=== PATIENT | female | born 1940 | race Caucasian/White ===

== ENCOUNTER → 2017-11-09 | Outpatient (CLI) | payer MEDICARE, BC ==
[~2017-11-09] MED LIST: ASPI-715 PO; ASPI81TA94 PO; CALC-852 PO; CALC500T42 PO; CALCIUM; CHOL200022 PO; CIPR-214 PO; FLUT12HF2 IH; HYDR-3250 PO; LOR7.5/325 PO; MULT-885 PO; MULT1CAP59 PO; No Rtn Meds
== END ==
LOC: LAB 14:02
PROVIDERS: ATTEND Internal Medicine
DX: E04.1 Nontoxic single thyroid nodule (principal); E04.9 Nontoxic goiter, unspecified
CPT/HCPCS: 36415; 84439; 84443; 84481

== ENCOUNTER → 2017-11-16 | Outpatient (CLI) | payer MEDICARE, BC ==
--- NOTE | 2017-11-16 16:26 | RADIOLOGY IMAGING REPORT ---
FACILITY: [facility] PATIENT NAME: Autumn Arellano : 1940 MR: [id number] V: [id number] EXAM DATE: ORDERING PHYSICIAN: STANFORD JOSEPH TECHNOLOGIST: Location: [facility] [place] Patient: Autumn Arellano : 1940 Visit/Account:[id number] Date of Sevice: 11/16/2017 THYROID HISTORY: Thyroid nodulesnodule thyroid COMPARISON: September 19, 2014 FINDINGS: SIZE: Right lobe: 5.8 x 1.2 x 1.8 cm Left lobe: 5.6 x 1.4 x 2 cm Isthmus: 3 mm PARENCHYMA: Heterogeneous NODULES: Right lobe: * There is an isoechoic nodule posterior aspect of the mid right lobe measuring approximately 1.6 cm in maximum dimension when measured in the same tissue planes appears relatively unchanged when brett red to the prior study. There is an additional slightly hypoechoic well-circumscribed nodule in the superior pole the right lobe measuring 1.1 cm in diameter this appears unchanged. Left lobe: * In the inferior left lobe there is an isoechoic nodule measuring 1.9 cm in diameter slightly incre ased from 1.7 cm previously. In the mid left lobe there is a 2.1 cm isoechoic nodule appears increas ed in size when compared to the prior study. In the superior left lobe is a 1.1 cm hypoechoic well-c ircumscribed nodule not measured on the prior study. Isthmus: * Is a 2.6 cm solid hypoechoic well-circumscribed nodule in the left-sided isthmus appears slightly more prominent when compared the prior study VASCULARITY: Within normal limits. ADDITIONAL FINDINGS: None. IMPRESSION: There is a 1.6 cm isoechoic nodule posterior aspect mid right lobe for which ultrasound-guided fine-n eedle aspiration is recommended In the inferior left lobe there is a isoechoic nodule measuring 1.9 cm in diameter slightly increased in size when compared the prior study for which ultrasound-guided fine-needle aspiration is recommen ded In the mid left lobe there is a 2.1 cm isoechoic nodule appears increased in size for which fine-need le aspiration is recommended Left-sided isthmus is a 2.6 cm hypoechoic nodule for which ultrasound-guided fine-needle aspiration i s recommended REFERENCE: 2015 [place] [employer] Management Guidelines for Adult Patients with Thyroid Nodules and D ifferentiated Thyroid Cancer: The [place] [employer] Guidelines Task Force on Thyroid Nodul es and Differentiated Thyroid Cancer. SONOGRAPHIC PATTERNS: * Benign: Purely cystic nodules (no solid component); estimated risk of malignancy <1 percent; no bi opsy recommended. * Very Low Suspicion: Spongiform or partially cystic nodules without any of the sonographic features described in low, intermediate, or high suspicion patterns; estimated risk of malignancy <3 percent; consider FNA at > 2 cm (Observation without FNA is also a reasonable option). * Low Suspicion: Isoechoic or hyperechoic solid nodule, or partially cystic nodule with eccentric so lid areas, without microcalcification, irregular margin or ETE (extra-thyroidal extension), or taller than wide shape; estimated risk of malignancy 5-10 percent; recommend FNA at >1.5 cm. * Intermediate Suspicion: Hypoechoic solid nodule with smooth margins without microcalcifications, E TE (extra-thyroidal extension), or taller than wide shape; estimated risk of malignancy 10-20 percent ; recommend FNA at > 1 cm. * High Suspicion: Solid hypoechoic nodule or solid hypoechoic component of a partially cystic nodule with one or more of the following features: irregular margins (infiltrative, microlobulated), microc alcifications, taller than wide shape, rim calcifications with small extrusive soft tissue component, evidence of ETE (extra-thyroidal extension); estimated risk of malignancy >70-90 percent; recommend FNA at > 1 cm. NOTES: * Although a sonographically suspicious subcentimeter thyroid nodule without evidence of extrathyroi jaja extension or sonographically suspicious lymph nodes may be observed with close sonographic follow -up rather than pursuing immediate FNA, patient age and prefere ce may modify decision-making.A > 50% interval increase in nodule volume and/or development of new suspicious sonographic features are fel t to be a valid reasons for potential re-aspiration of a nodule previously shown to have benign FNA c ytology. Report Dictated By: Princess Valdez MD at 11/16/2017 4:13 PM Report E-Signed By: Princess Valdez MD at 11/16/2017 4:21 PM WSN:[email or web address]
== END ==
LOC: US 04:23
PROVIDERS: ATTEND Internal Medicine
DX: E04.9 Nontoxic goiter, unspecified (principal); E04.1 Nontoxic single thyroid nodule
CPT/HCPCS: 76536

== ENCOUNTER → 2018-12-12 | Outpatient (CLI) | payer MEDICARE, BC ==
[~2018-12-12] MED LIST changes: +CHOL100052 PO; +CHOL200018 PO; -CHOL200022 PO
[2018-12-12 15:33] LABS: INR 0.99
[2018-12-12 15:34] LABS: PLATELET COUNT, AUTOMATED 198 K/uL (150-450)
--- NOTE | 2018-12-12 16:11 | RADIOLOGY IMAGING REPORT ---
FACILITY: [facility] PATIENT NAME: Autumn Arellano : 1940 MR: [id number] V: [id number] EXAM DATE: ORDERING PHYSICIAN: ARIEL QUIROZ TECHNOLOGIST: Location: [facility] - [place] Patient: Autumn Arellano : 1940 Visit/Account:[id number] Date of Sevice: 12/12/2018 DEXA Scan Clinical history: Asymptomatic postmenopausal state. Comparison: DEXA scan from 08/29/2013. LUMBAR SPINE: The bone mineral density (BMD) measured from L1-L4 correlates with a Z-score of 2.0 and a T-score of 0 which is Normal as defined by the World Health Organization. The corresponding risk of fracture in the lumbar spine is Not increased compared with a young adult reference population. This value has decrease by 0.7 % since the prior study. More than 5% change is considered significant. HIP: Bone mineral density (BMD) measured in the LEFT total hip region correlates with a Z-score 0.9 and a T-score of there is 1.1 which is osteopenia as defined by the World Health Organization. The corresp onding risk of fracture in the hip is 2-3 times increased compared to a young adult reference populat ion. This value has increase by 1.5 % since the prior study. More than 5% change is considered signi ficant. T score left femoral neck -1.5 Bone mineral density (BMD) measured in the Femoral Neck region measures 0.827 g/cm?. IMPRESSION: 1. Lumbar spine: Normal. There has been 0.7% decrease in the bone mineral density since the previou s exam. 2. Left Total Hip: Osteopenia. There has been 1.5% increase in the bone mineral density since the p revious exam. 3. Femoral Neck: Bone Mineral Density is 0.827 g/cm? The next DEXA scan of this patient should include the following sites: L1-L4 and the left hip. FRAX? WHO Fracture Risk Assessment Tool link: <http://www.shef.ac.uk/FRAX/tool.jsp?locationValue=9> PLEASE NOTE: 1) The World Health Organization defines low BMD as follows: T-score Normal > -1 Osteopenia < -1 and > -2.5 Osteoporosis < -2.5 without fractures Established osteoporosis < -2.5 with fractures 2) In general, you may wish to consider: Diagnosis Treatment Follow-up DEXA Normal BMD Prevention 2-3 years Osteopenia Prevention/therapy 1-2 years Osteoporosis Therapy Yearly 3) Fracture risk estimated from the T-score is more accurate for vertebral fractures (often spontane ous) than for hip fractures. Report Dictated By: Princess Valdez MD at 12/12/2018 4:05 PM Report E-Signed By: Princess Valdez MD at 12/12/2018 4:06 PM WSN:[email or web address]
== END ==
LOC: LAB 14:29
PROVIDERS: ATTEND Emergency Medicine
DX: Z13.820 Encounter for screening for osteoporosis (principal); Z78.0 Asymptomatic menopausal state; M85.862 Other specified disorders of bone density and structure, left lower leg
CPT/HCPCS: 36415; 77080; 82040; 82247; 82306; 82310; 82374; 82435; 82565; 82607; 82947; 84075; 84132; 84155; 84295; 84443; 84450; 84460; 84520; 85025; 85610; 85730

== ENCOUNTER → 2018-12-19 | Outpatient (CLI) | payer MEDICARE, BC ==
--- NOTE | 2018-12-20 14:23 | RT HOLTER TEST ---
FACILITY: [facility] PATIENT NAME: SYBIL RAMOS : [id number] MR: [id number] V: [id number] EXAM DATE: ORDERING PHYSICIAN: ARIEL QUIROZ TECHNOLOGIST: GRAHAM Hook-up date: 2018-12-19 12:56:00 Duration: 24:35:00 Test Indications: DIZZINESS Medications: [id number] QRS complexes 1169 Ventricular ectopics which represent <1 % of total QRS comp. 21 Supraventricular ectopics which represent <1 % of total QRS comp. * Paced QRS complexes which represent % of total QRS comp. VENTRICULAR ECTOPY 1167 Isolated 0 Bigeminal Cycles 1 Couplets 0 Runs 0 Beats in Runs * Beats LONGEST at * BPM at :: -- * Beats FASTEST at * BPM at :: -- SUPRAVENTRICULAR ECTOPY 2 Isolated 1 Couplets 3 Runs 17 Beats in Runs 7 Beats LONGEST at 131 BPM at 09:22:03 2018-12-20 3 Beats FASTEST at 208 BPM at 21:19:21 2018-12-19 HEART RATES 57 MIN at 06:53:47 2018-12-20 81 AVG 149 MAX at 12:40:27 2018-12-20 LONGEST RR 1.440 secs at 06:44:29 2018-12-20 S-T LEVELS Channel 1 -12.800 mm MIN at 12:56:00 2018-12-19 -12.800 mm MAX at 12:56:00 2018-12-19 Channel 2 -12.800 mm MIN at 12:56:00 2018-12-19 -12.800 mm MAX at 12:56:00 2018-12-19 Channel 3 -12.800 mm MIN at 12:56:00 2018-12-19 -12.800 mm MAX at 12:56:00 2018-12-19 Frequent ventricular ectopy with one couplet. No runs were recorded. Rare supraventricular ectopy, but a few short runs of supraventricular tachycardia [maximum seven (7) beats], which may be atrial fibrillation. No pauses of more than two (2) seconds were recorded. Confirmed by ASHTYN SALES ([id number]) on 12/20/2018 2:22:11 PM Referred By: Overread By: ASHTYN SALES
== END ==
LOC: RESP 01:22
PROVIDERS: ATTEND Emergency Medicine
DX: R42 Dizziness and giddiness (principal)
CPT/HCPCS: 93225

== ENCOUNTER → 2018-12-21 | Outpatient (CLI) | payer MEDICARE, BC ==
--- NOTE | 2018-12-21 13:31 | RADIOLOGY IMAGING REPORT ---
FACILITY: [facility] - [place] PATIENT NAME: Autumn Arellano : 1940 MR: [id number] V: [id number] EXAM DATE: ORDERING PHYSICIAN: ARIEL QUIROZ TECHNOLOGIST: Location: [facility] - [place], [place] Patient: Autumn Arellano : 1940 Visit/Account:[id number] Date of Sevice: 12/21/2018 US BIOPSY LOC/INJ THYROID HISTORY: Thyroid nodules COMPARISON: Thyroid ultrasound 11/16/2017 and 09/19/2014 PROCEDURE: Previous studies were reviewed. Procedure benefits and risks were discussed with the patient and writ ten consent was obtained. A formal timeout was performed documented the patient's name, date of ashlyn h and procedure to be performed. The patient's neck was prepped and draped in a sterile fashion. 1% lidocaine used for local anesthes ia The previously described left isthmus nodule was localized with ultrasound. Using ultrasound guidance , a 25 gauge needle was inserted percutaneously into the nodule. An aspirate was obtained which was p laced onto slides for cytologic evaluation. 3 additional passes were made into the nodule using shakira lar technique. Preliminary evaluation of the aspirates by the pathologist demonstrates adequate cellularity for diag nosis. The patient tolerated the procedure well and there were no complications. IMPRESSION: 1. Technically successful ultrasound-guided fine-needle aspiration of the previously described left isthmus nodule. Please see final pathology results for further details. 2. There are additional nodules within both thyroid lobes which are similar in morphology to the bio psied nodule and have not significantly changed in size from 2015. Recommend follow-up ultrasound in 6-12 months. Report Dictated By: Dixon Myers MD at 12/21/2018 1:23 PM Report E-Signed By: Dixon Myers MD at 12/21/2018 1:25 PM WSN:[email or web address]
== END ==
LOC: US 01:47
PROVIDERS: ATTEND Emergency Medicine
DX: E04.2 Nontoxic multinodular goiter (principal)
CPT/HCPCS: 10005; 88104; 88172

== ENCOUNTER → 2019-01-29 | Outpatient (CLI) | payer MEDICARE, BC ==
--- NOTE | 2019-01-29 15:33 | RADIOLOGY IMAGING REPORT ---
FACILITY: [facility] PATIENT NAME: SYBIL RAMOS : [id number] MR: [id number] V: [id number] EXAM DATE: [id number] ORDERING PHYSICIAN: ARIEL QUIROZ TECHNOLOGIST: Alma Lebron PROCEDURE: BILATERAL DIGITAL SCREENING MAMMOGRAM WITH CAD ASSISTED INTERPRETATION & 3D TOMOSYNTHESIS REASON FOR STUDY: Screening. COMPARISON: 10/26/15, 09/11/14, 09/05/13. VIEWS OBTAINED: 2D & 3D full field CC & MLO projections. BREAST DENSITY: The breast parenchyma is heterogeneously dense. MAMMOGRAM FINDINGS: Benign appearing calcifications bilaterally. No mammographic findings concerning for malignancy. No significant interval change. IMPRESSION: BIRADS 2: Benign finding. DIAGNOSTIC CATEGORY 2--BENIGN FINDING. RECOMMENDATIONS: ROUTINE MAMMOGRAM AND CLINICAL EVALUATION IN 1YR. Dictated by: Lenin Cronin on 01/29/2019 at 12:01 Transcribed by: NIA on 01/29/2019 at 14:09 Approved by: Lenin Cronin on 01/29/2019 at 15:28 [facility]
== END ==
LOC: MAMO 00:46
PROVIDERS: ATTEND Emergency Medicine
DX: Z12.31 Encounter for screening mammogram for malignant neoplasm of breast (principal); R92.1 Mammographic calcification found on diagnostic imaging of breast
CPT/HCPCS: 77063; 77067